=== PATIENT | female | born 1965 | race Caucasian/White ===

== ENCOUNTER 2024-10-14 10:22 | Emergency (ER) | payer MEDICAID ==
[~2024-10-14] VITALS: Ht 147.3 cm; Wt 70.8 kg
[2024-10-14 10:24] VITALS: PULSE 79; RESP 18; O2SAT 99
[2024-10-14 10:26] VITALS: BP 146/57; TEMP 37.1; O2SAT 98
[2024-10-14 12:45] VITALS: TEMP 98.7
[2024-10-14] MEDS: ACETAMINOPHEN 500MG TABLET PO ONE (12:45)
[2024-10-14] MEDS ORDERED: ACET-2708 MT (12:56)
[2024-10-14] MEDS ORDERED: DIPH25CA83 MT (12:56)
== END 2024-10-14 14:01 | disposition home or self-care (01) ==
LOC: ER 10:22
DX: R51.9 Headache, unspecified (principal); E78.00 Pure hypercholesterolemia, unspecified; Z98.890 Other specified postprocedural states
CPT/HCPCS: 99282